=== PATIENT | male | born 1965 | race Caucasian/White ===

== ENCOUNTER 2020-12-28 08:23 | Observation (INO) | payer OTHER ==
[2020-12-19 15:14] LABS: BASOPHILS # (AUTO) 0.1 X10'3 (0-0.2); BASOPHILS % (AUTO) 0.8 % (0-1); EOSINOPHILS % (AUTO) 0.3 % (0-6); LYMPHOCYTES # (AUTO) 1.6 X10'3 (1.1-4.8); LYMPHOCYTES % (AUTO) 17.7 % (21-51); MEAN CORPUSCULAR HEMOGLOBIN 33.6 PG (27.0-31.0); MEAN CORPUSCULAR HGB CONC 33.8 g/dL (33.0-36.5); MEAN CORPUSCULAR VOLUME 99.3 FL (78-98); MEAN PLATELET VOLUME 9.5 FL (7.4-10.4); MONOCYTES # (AUTO) 0.6 X10'3 (0-0.9); NEUTROPHILS # (AUTO) 6.8 X10'3 (1.8-7.7); NEUTROPHILS % (AUTO) 74.2 % (42-75); PRE OP HEMATOCRIT 50.5 % (42.0-52.0); PRE OP HEMOGLOBIN 17.1 g/dL (14.0-17.9); PRE OP PLATELET COUNT 253 X10'3 (140-440); RED BLOOD COUNT 5.09 X10'6 (4.70-6.10); RED CELL DISTRIBUTION WIDTH 13.5 % (11.5-14.5)
[2020-12-19 15:15] LABS: ALBUMIN 4.1 G/DL (3.4-5.0); ALKALINE PHOSPHATASE 114 IU/L (46-116); BLOOD UREA NITROGEN 7 MG/DL (7-18); BUN/CREATININE RATIO 6.4 (5.4-32.0); CALCIUM 9.4 MG/DL (8.5-10.1); CHLORIDE 103 MMOL/L (99-107); PRE OP ALT 63 U/L (30-65); PRE OP ANION GAP 10 (8-16); PRE OP AST 40 U/L (10-37); PRE OP BILIRUB, TOTAL 0.5 MG/DL (0.0-1.0); PRE OP GLUCOSE 121 MG/DL (70-104); PRE OP POTASSIUM 3.8 MMOL/L (3.4-5.1); PRE OP SODIUM 138 MMOL/L (135-145); TOTAL CARBON DIOXIDE 25.5 MMOL/L (24-32); TOTAL PROTEIN 8.2 G/DL (6.4-8.2); eGFR 69 ML/MIN
[~2020-12-28] VITALS: Ht 180.3 cm; Wt 100.0 kg
[2020-12-28] VITALS (20 sets, daily range): BP systolic 121–163; BP diastolic 66–99
[~2020-12-28 08:23] MED LIST: ASCO-294 PO; ATOR20TA PO; BENA40TA73 PO; CHOL500044 PO; MOME17SP BOTHNARES; OMEG-133 PO; TRANEXAMIC ACID 1 GM IN NACL,ISO-OS 100 ML IV ONE; VANCOMYCIN 1,500MG inj. 1,500 MG in normal saline 500ml IV soln 300 ML IV ONE; ZINC30CA PO; cefazolin/dext.iso 2gm/50ml 50 ML IV ONE; famotidine 20mg tablet PO ONE
[2020-12-28] MEDS: ringers solution, lacted 1,000 ML IV SCH ×2 (08:52→20:15)
[2020-12-28] MEDS ORDERED: ketorolac trometh. 30mg/ml inj. ONE (12:43)
[2020-12-28] MEDS ORDERED: epiNEPHrine 1 mg/ml inj ONE (12:43)
[2020-12-28] MEDS ORDERED: ROPIVAcaine 0.5% (5mg/ml) 30ml vial ONE ×2 (12:43→15:49)
[2020-12-28] MEDS ORDERED: vancomycin 1,000mg inj ONE (12:46)
[2020-12-28] MEDS ORDERED: morphine 10mg/ml inj. ONE (12:46)
[2020-12-28] MEDS ORDERED: MIDAZolam 1mg/ml 10ml vial ONE (13:02)
[2020-12-28] MEDS ORDERED: fentaNYL/PF 50MCG/1 ML 2ML syringe ONE (13:02)
[2020-12-28] MEDS ORDERED: propofol inj 20 ML IV ONE (13:15)
[2020-12-28] MEDS ORDERED: Thrombin (Bovine) 5,000 unit vial TP ONE (13:58)
[2020-12-28] MEDS ORDERED: diphenhydrAMINE 50 mg/ml inj ONE (14:30)
[2020-12-28] MEDS ORDERED: ROPIVAcaine 0.2% (10 MG/5 ML) BOLUS INJECTION ADDCANAL PRN (15:05)
[2020-12-28] MEDS ORDERED: ROPIVAcaine 0.2%/PF PUMP/bolus 545 ML ADDCANAL SCH (15:30)
[2020-12-28] MEDS ORDERED: bisacodyl 10mg suppository rectal RC PRN (15:40)
[2020-12-28] MEDS ORDERED: diphenhydrAMINE 25mg capsule PO PRN ×2 (15:40)
[2020-12-28] MEDS ORDERED: acetaminophen 325mg tablet PO PRN (15:40)
[2020-12-28] MEDS ORDERED: magnesium hydroxide 30ml (MOM) UD suspension PO PRN (15:40)
[2020-12-28] MEDS ORDERED: ondansetron/PF 4mg/2ml inj IV PRN (15:40)
[2020-12-28] MEDS ORDERED: oxyCODONE IR 5mg (immed. release) tablet PO PRN ×2 (15:40)
--- NOTE | 2020-12-28 15:54 | NUR ---
ASSUME CARE VSS NO DISTRESS PT AWAKE NC 3L DENIES PAIN, IV TO LUE 18G IV FLUIDS INFUSING WITHOUT DIFF, CHRISTOPHER WRAP DRESSING TO RIGHT KNEE CDI WITH ICE TO SITE, DERMATONE CHECK AT LL CONT TO MONITOR. Addendum: 12/28/20 at 1618 by Chasidy Mcneal RN Amended: Links added.
[2020-12-28] MEDS: potassium cl 20mEq in 1/2 NS 1,000 ML IV SCH ×2 (16:30→23:40)
--- NOTE | 2020-12-28 17:04 | NUR ---
PT AWAKE ALERT VSS NO DISTRESS DERMATONES ABLE TO TEIXEIRA INCL LOWER EXTR. DENIES PAIN. MEETS CRITERIA TO DC TO ROOM REPORT CALLED TO BACTERIOLOGIST INDUSTRIAL PT VIA BED TO ROOM 348B Addendum: 12/28/20 at 1705 by Chasidy Mcneal RN Amended: Links added.
--- NOTE | 2020-12-28 17:45 | NUR ---
Pt arrived to unit via bed
--- NOTE | 2020-12-28 18:30 | NUR ---
Patient in room [facility]. I have received report from DOUG SIERRA and had the opportunity to ask questions and assume patient care.
[2020-12-28] MEDS ORDERED: tranexamic acid 1gm/0.7% sal. 1,000 ML IV ONE (19:00)
[2020-12-28] MEDS: ceFAZolin/D5W- 1GM premix 50 ML IV SCH (19:49)
[2020-12-28] MEDS ORDERED: vancomycin/NS 1 GM ADD-VANTAGE 250 ML IV SCH (20:00)
[2020-12-28] MEDS: acetaminophen 325mg tablet PO SCH (20:00)
[2020-12-28] MEDS ORDERED: tranexamic acid 1gm/0.7% sal. 100 ML IV ONE (20:35)
[2020-12-28] MEDS ORDERED: atorvastatin 20mg tablet PO SCH (21:00)
[2020-12-28] MEDS ORDERED: sennosides 8.6mg tablet PO SCH (21:00)
[2020-12-28] MEDS: gabapentin 300mg capsule PO SCH (21:00)
--- NOTE | 2020-12-28 21:00 | NUR ---
Student documentation: I have reviewed and agree with all interventions, assessments performed and documented by JESÚS DAMON.
[2020-12-29] VITALS: BP 141/90
[2020-12-29] MEDS: ceFAZolin/D5W- 1GM premix 50 ML IV SCH (01:17)
[2020-12-29] MEDS: acetaminophen 325mg tablet PO SCH ×2 (01:26→08:37)
--- NOTE | 2020-12-29 06:30 | NUR ---
Problems reprioritized. Patient report given, questions answered & plan of care reviewed with RAFITA SIERRA.
[2020-12-29] MEDS: potassium cl 20mEq in 1/2 NS 1,000 ML IV SCH (06:35)
--- NOTE | 2020-12-29 06:35 | NUR ---
Patient in room [facility]. I have received report from poornima noguera rn and had the opportunity to ask questions and assume patient care.
[2020-12-29 07:39] VITALS: BP 148/109
[2020-12-29] MEDS ORDERED: lisinopril 20mg tablet PO SCH (08:00)
[2020-12-29] MEDS ORDERED: fluticasone nasal spray 16GM bottle NS SCH (08:00)
[2020-12-29] MEDS ORDERED: ZINC GLUCONATE ZINC PICOLINATE 30 MG PO SCH (08:00)
[2020-12-29] MEDS ORDERED: ascorbic acid 500mg tablet PO SCH (08:00)
[2020-12-29] MEDS ORDERED: cholecalciferol (vitamin D3) 1,000 unit (25mcg) tablet PO SCH (08:00)
[2020-12-29] MEDS ORDERED: OMEGA-3/DHA/EPA/FISH OIL 1 EACH CAPSULE.DR PO SCH (08:00)
[2020-12-29] MEDS ORDERED: aspirin 325mg tablet PO SCH (08:30)
[2020-12-29] MEDS: gabapentin 300mg capsule PO SCH (08:35)
[2020-12-29 11:00] VITALS: BP 150/96
--- NOTE | 2020-12-29 11:47 | NUR ---
Joint Surgery Consult: Pt admit s/p R knee surgery. Pt/SO seen by CHRISTIAN for written/verbal high protein ed w/ RD contact information provided. CHRISTIAN encouraged pt to contact dietitian's office if further questions/concerns. Addendum: 12/29/20 at [address] Amended: Links added.
--- NOTE | 2020-12-29 12:54 | NUR ---
[facility] discharge instructions given regarding post op care and follow up. iv removed tip intact no complications. belonings sent with pt. pts discharged with in private vehicle to home
[2020-12-29] MEDS ORDERED: celeCOXIB 100mg capsule PO SCH (20:00)
[2020-12-30] MEDS ORDERED: acetaminophen 325mg tablet PO PRN (15:40)
== END 2020-12-29 12:35 | disposition home or self-care (01) ==
LOC: PAS 08:23 → SUR 3N 15:40 → EDBD 15:40
PROVIDERS: ADMIT Orthopaedic Surgery; ATTEND Orthopaedic Surgery
DX: M17.11 Unilateral primary osteoarthritis, right knee (principal); Z20.822 Contact with and (suspected) exposure to COVID-19; I10 Essential (primary) hypertension; E66.9 Obesity, unspecified; Z79.899 Other long term (current) drug therapy; Z87.891 Personal history of nicotine dependence; Z85.828 Personal history of other malignant neoplasm of skin; Z96.651 Presence of right artificial knee joint
CPT/HCPCS: 27446; 36415; 80053; 82948; 85025; 87081; 93005; 96365; 96366; 96367; 96368; 97110; 97116; 97162; 97530; C1713; C1776; G0378; J0171; J0690; J1200; J1885; J2250; J2270; J2704; J2795; J3010; J3370; J7040; J7050; J7120; U0003; U0005; A4215; A4618; A7000; J3480